=== PATIENT | female | born 1970 | race Caucasian/White ===

== ENCOUNTER → 2017-10-16 | Outpatient (CLI) | payer OTHER ==
[~2017-10-16] MED LIST: ALLEGRA ALLERG180 MG PO; ALLERGY RELIEF10 M3 PO; AMLODIPINE BESY10 MG PO; AMLODIPINE BESYL5 MG PO; AUGMENTIN 875875 M1 PO; B12 5,000 MCG1 EACH SL; BACTRIM DS TAB1 EACH PO; D3 + K2 DOTS 11 EACH PO; FISH OIL 1,0001 EAC5 PO; FISH OIL SOFTG1 EACH PO; FLEXERIL PO; FORMULA 303; HYDROCODON-ACE1 EAC5 PO; HYDROCODON-ACE1 EACH PO; HYZAAR 50-12.51 EACH PO; IBUPROFEN 800800 M1 PO; LIPITOR10 MG PO; LIVALO1 MG PO; NORVASC10 MG PO; ONE DAILY FOR1 EAC1 PO; PERCOCET PO; PREDNISONE 20 M20 M1 PO; ROBAXIN500 MG PO; SKELAXIN PO; SUPHEDRINE PE10 MG; TRAMADOL 50 MG50 MG PO; ULTRAM 50MG TAB50 MG PO; VICOPROFEN 2001 EACH PO; VITAMIN D-32000 UNIT PO; WOMEN'S MULTI1 EACH PO; ZANAFLEX4 MG PO; ZOCOR; ZOCOR 10 MG TAB10 M1 PO; ZOCOR 20 MG TAB20 M1 PO; [UNRECOGNIZED DRUG - OTHER] PO; [UNRECOGNIZED DRUG - REMARK]; [UNRECOGNIZED DRUG - REMARK]
== END ==
LOC: M.RAD 11:25
DX: S99.911A Unspecified injury of right ankle, initial encounter (principal); M19.071 Primary osteoarthritis, right ankle and foot; X58.XXXA Exposure to other specified factors, initial encounter; Y93.89 Activity, other specified; Y92.89 Other specified places as the place of occurrence of the external cause; Y99.8 Other external cause status

== ENCOUNTER → 2018-01-15 | Outpatient (CLI) | payer OTHER | LOC: M.MRI 08:06 | DX: S83.281A Other tear of lateral meniscus, current injury, right knee, initial encounter (principal); M25.461 Effusion, right knee; G89.29 Other chronic pain; X58.XXXA Exposure to other specified factors, initial encounter; Y93.89 Activity, other specified; Y92.89 Other specified places as the place of occurrence of the external cause; Y99.8 Other external cause status ==

== ENCOUNTER → 2021-08-23 | Outpatient (CLI) | payer OTHER | LOC: M.CT 07:58 | PROVIDERS: ATTEND Family Medicine | DX: Z13.6 Encounter for screening for cardiovascular disorders (principal); I25.10 Atherosclerotic heart disease of native coronary artery without angina pectoris ==

== ENCOUNTER → 2021-08-23 | Outpatient (CLI) | payer OTHER | LOC: M.RAD 08:04 | PROVIDERS: ATTEND Family Medicine | DX: Z12.31 Encounter for screening mammogram for malignant neoplasm of breast (principal) ==

== ENCOUNTER → 2021-09-05 | Outpatient (CLI) | payer OTHER | LOC: M.ULTRA 10:56 | PROVIDERS: ATTEND Family Medicine | DX: N60.02 Solitary cyst of left breast (principal) ==